=== PATIENT | male | born 1950 | race African-American/Black ===

== ENCOUNTER 2023-01-02 13:44 | Outpatient (CLI) | payer MEDICARE ==
[~2023-01-02 13:44] MED LIST: Magnevist 469MG/ML 20 ML VIAL ONE
== END 2023-01-02 13:45 | disposition home or self-care (01) ==
LOC: CSHMRI 13:44
PROVIDERS: ATTEND Orthopaedic Surgery Hand Surgery
DX: D16.02 Benign neoplasm of scapula and long bones of left upper limb (principal)